=== PATIENT | male | born 1995 | race Hispanic/Latino ===

== ENCOUNTER 2018-07-07 11:32 | Emergency (ER) | payer SELFPAY ==
[2018-07-07] MEDS ORDERED: Adacel (T-DAP) 0.5 ML VIAL ONE (13:03)
== END 2018-07-07 12:53 | disposition home or self-care (01) ==
LOC: BURERS 11:32
DX: S61.002A Unspecified open wound of left thumb without damage to nail, initial encounter (principal); W45.8XXA Other foreign body or object entering through skin, initial encounter
CPT/HCPCS: 90471; 90715